=== PATIENT | female | born 1995 | race Caucasian/White ===

== ENCOUNTER 2021-05-28 21:23 | Emergency (ER) | payer OTHER, SELFPAY ==
[2021-05-28 22:12] VITALS: BP 138/94; PULSE 80; RESP 16; TEMP 36.7; O2SAT 99; BMI 35.6
[2021-05-28 22:37] LABS: COVID-19 Test Negative (Negative)
--- NOTE | 2021-05-28 22:56 | ED_ITS ---
HPI - URI/Sore Throat General Chief Complaint: Upper Respiratory Symptoms Stated Complaint: cough and sore throat Time Seen by Provider: 05/28/21 22:56 Source: patient Mode of arrival: ambulatory History of Present Illness HPI Narrative: 25-year-old female arrives with her sister on mother and is seeking a COVID-19 test as she has been exposed to both her mother and sister and reports a cough, headache and she is concerned that she may be COVID positive. Related Data Allergies Allergy/AdvReac Type Severity Reaction Status Date / Time No Known Allergies Allergy Unverified 05/28/21 22:56 Review of Systems Review of Systems: Pertinent positives and negatives as stated in HPI 10 point review systems is otherwise negative. PMFSH Past Medical History Source: nursing notes reviewed Social History Social History Advance Directives: No Advance Directives Information Provided: No Patient : No Physical Exam Vital Signs: Vital Signs: Last Vital Signs Temp 98.0 F 05/28/21 22:12 Pulse 75 05/29/21 00:13 Resp 16 05/29/21 00:13 BP 128/86 05/29/21 00:13 Pulse Ox 97 05/29/21 00:13 BMI result Body Mass Index 35.6 VITAL SIGNS: Reviewed. GENERAL: Well developed, well nourished, in no acute distress. HEAD: Normocephalic/atraumatic EYES: PERRLA, EOMI EARS: Ext canals without abnormality, TMs non-bulging and non-erythematous NOSE: Nares patent bilateral OROPHARYNX: no oral lesions noted, posterior pharynx clear and non-erythematous without noted tonsillar enlargement/erythema/exudates NECK: Supple, no adenopathy LUNGS: Normal breath sounds. SpO2<97> CARDIOVASCULAR: Regular rate and rhythm without noted murmurs ABDOMEN: Soft, non-tender, non-distended with bowel sounds. NEUROLOGIC: Alert and oriented x 4. Course Course Course Narrative: 25-year-old female with history and clinical presentation consistent with COVID-19 exposure as well as viral like syndromes, but she was noted to be COVID-19 positive. However on giving these results to the patient she was instructed to isolate along with her mother and sister as there is a high likelihood that the fact her test is negative is simply a factor of timing. Patient is not short of breath, is afebrile, and oxygenating well on room air. She is discharged home in stable condition. MDM - URI/Sore Throat Lab Data Labs: Lab Results 05/28/21 Range/Units 22:16 COVID-19 ([facility]ARGARET) Negative (Negative) COVID-19 Clin Com See Note Discharge Plan Discharge Clinical Impression: Lab test negative for COVID-19 virus, Viral syndrome, Close exposure to COVID- 19 virus Patient Disposition: Home, Self-Care Instructions: Viral Syndrome (ED) Additional Instructions: 1. You must self quarantine, especially as you have to individuals with whom you have had close exposure and who are COVID-19 positive currently. 2. Utilize [id number] Tylenol/ibuprofen as needed for any body aches, temperatures greater than 100.4. 3. Follow-up with your primary care provider via telemedicine appointment. Return to the ER for worsening symptoms. Interventions: ED Discharge Assessment Last Done: 05/29/21 00:14 Discharge Date/Time: 05/29/21 00:14
[2021-05-28] MEDS: Ibuprofen 400 MG TABLET PO (23:41)
[2021-05-28] MEDS: Acetaminophen 325 MG TABLET 975 MG PO (23:41)
[2021-05-29 00:13] VITALS: BP 128/86; PULSE 75; RESP 16; O2SAT 97
== END 2021-05-29 00:14 | disposition home or self-care (01) ==
PROVIDERS: Emergency Provider Student in an Organized Health Care Education/Training Program
DX: B34.9 Viral infection, unspecified (principal); Z20.822 Contact with and (suspected) exposure to COVID-19; R05.9 Cough, unspecified
CPT/HCPCS: 36415; 87635; 99283